=== PATIENT | female | born 2000 | race Caucasian/White ===

== ENCOUNTER 2022-12-08 11:13 | Emergency (ER) | payer SELFPAY | END 2022-12-08 12:31 | disposition home or self-care (01) | LOC: KA.ED 11:13 | DX: K03.81 Cracked tooth (principal); F17.210 Nicotine dependence, cigarettes, uncomplicated | CPT/HCPCS: 99282; 99283 ==

== ENCOUNTER 2023-03-05 21:22 | Emergency (ER) | payer SELFPAY ==
[2023-03-05] MEDS ORDERED: Ketorolac 30 MG/ML SDV IM ONE (21:54)
[2023-03-05] MEDS ORDERED: Amoxicillin 500 MG Cap PO ONE (21:55)
== END 2023-03-05 22:15 | disposition home or self-care (01) ==
LOC: KA.ED 21:22
DX: S02.5XXA Fracture of tooth (traumatic), initial encounter for closed fracture (principal)
CPT/HCPCS: 96372; 99282; A9270; J1885; 99283